=== PATIENT | female | born 1985 | race Caucasian/White ===

== ENCOUNTER → 2018-12-24 | Outpatient (CLI) | payer OTHER, SELFPAY ==
[2018-12-24 10:36] VITALS: BMI 33.1
[2018-12-24 12:37] LABS: Absolute Lymphocyte Count 1.86 X10^3/uL (0.83-4.51); Absolute Neutrophil Count 8.4 X10^3/uL (2.0-7.7); Basophil# 0.05 X10^3/uL; Basophil% 0.5 % (0-1); Eosinophil# 0.04 X10^3/uL; Eosinophils% 0.4 % (0-5); Hematocrit 38.9 % (37-47); Hemoglobin 13.1 g/dL (12.0-15.0); Lymphocyte # 1.86 X10^3/ul (4.0); Lymphocyte % 17.3 % (19-41); Mean Corp Hgb Conc 33.7 g/dL (32-36); Mean Corpuscular Hgb 30.5 pg (27.0-32.0); Mean Corpuscular Volume 90.7 fL (81-99); Mean Platelet Vol. 9.6 fl (6.2-12.0); Monocyte# 0.41 X10^3/uL; Monocyte% 3.8 % (0-10); NRBC Flagged by Analyzer 0 % (0-5); Neutrophil # 8.38 X10^3/uL (2.7-7.7); Neutrophil % 77.7 % (47-70); Platelet Count 285 K/mm3 (150-450); RBC Distribution Width CV 12.6 % (11.6-14.6); RBC Distribution Width SD 41.4 fl (35.1-43.9); Red Blood Count 4.29 M/mm3 (4.2-5.4); White Blood Count 10.8 K/mm3 (4.4-11.0)
[2018-12-24 12:42] LABS: Glucose Challenge Gest 1H 50g 104 mg/dL (70-140)
[2018-12-24 13:35] LABS: HIV - WCH Non-Reactive (Nonreactive); Rubella IgG 91.7 IU/mL
[2018-12-24 19:00] LABS: Chlamydia Trachomatis by PCR Negative (Negative); Neisserai gonorrhoeae by PCR Negative (Negative); Probe Check PASS; Sample Adequacy Control PASS; Specimen Processing Control PASS
[2018-12-26 04:56] LABS: Rapid Plasmin Reagin (RPR) NONREACTIVE (NONREACTIVE)
[2018-12-29 11:28] LABS: HPV APTIMA, High Risk Negative (Negative)
== END | disposition home or self-care (01) ==
PROVIDERS: Family Provider Family Medicine; PCP Family Medicine; Referring Provider Nurse Practitioner Women's Health; Visit Provider Nurse Practitioner Women's Health
DX: Z34.90 Encounter for supervision of normal pregnancy, unspecified, unspecified trimester (principal); O99.211 Obesity complicating pregnancy, first trimester; E66.9 Obesity, unspecified; Z12.4 Encounter for screening for malignant neoplasm of cervix; Z34.81 Encounter for supervision of other normal pregnancy, first trimester
CPT/HCPCS: 36415; 82950; 85025; 86592; 86703; 86762; 86850; 86900; 87077; 87086; 87088; 87186; 87491; 87591; 87624; 88175; G0145

== ENCOUNTER → 2019-03-24 14:11 | Outpatient (CLI) | payer OTHER, SELFPAY ==
[2019-03-24 12:16] VITALS: BMI 33.1
== END ==
PROVIDERS: Family Provider Family Medicine; PCP Family Medicine; Referring Provider Physician Assistant Surgical; Visit Provider Physician Assistant Surgical
DX: J02.9 Acute pharyngitis, unspecified (principal)
CPT/HCPCS: 87070

== ENCOUNTER → 2019-04-21 14:30 | Outpatient (CLI) | payer OTHER, SELFPAY ==
[2019-04-16 16:07] VITALS: BMI 33.1
[2019-04-21 14:56] LABS: Absolute Neutrophil Count 8.1 X10^3/uL (2.0-7.7); Basophil# 0.04 X10^3/uL; Basophil% 0.4 % (0-1); Eosinophil# 0.08 X10^3/uL; Eosinophils% 0.8 % (0-5); Hematocrit 34.3 % (37-47); Hemoglobin 11.3 g/dL (12.0-15.0); Lymphocyte % 17.1 % (19-41); Mean Corp Hgb Conc 32.9 g/dL (32-36); Mean Corpuscular Hgb 30.9 pg (27.0-32.0); Mean Corpuscular Volume 93.7 fL (81-99); Mean Platelet Vol. 9.3 fl (6.2-12.0); Monocyte% 4.7 % (0-10); NRBC Flagged by Analyzer 0 % (0-5); Neutrophil # 8.08 X10^3/uL (2.7-7.7); Neutrophil % 76.5 % (47-70); Platelet Count 257 K/mm3 (150-450); RBC Distribution Width CV 12.3 % (11.6-14.6); Red Blood Count 3.66 M/mm3 (4.2-5.4); White Blood Count 10.6 K/mm3 (4.4-11.0)
[2019-04-21 15:06] LABS: Glucose Challenge Gest 1H 50g 104 mg/dL (70-140)
== END ==
PROVIDERS: Family Provider Family Medicine; PCP Family Medicine; Referring Provider Obstetrics & Gynecology; Visit Provider Obstetrics & Gynecology
DX: Z34.80 Encounter for supervision of other normal pregnancy, unspecified trimester (principal)
CPT/HCPCS: 36415; 82950; 85025

== ENCOUNTER → 2019-06-15 15:03 | Outpatient (CLI) | payer OTHER, SELFPAY ==
[2019-06-15 14:14] VITALS: BMI 33.1
[2019-06-15 16:10] LABS: Hemoglobin A1c 5.2 % (4.2-6.3)
[2019-06-16 09:20] LABS: Hepatitis B Surface Antigen Non-Reactive (Nonreactive)
== END ==
PROVIDERS: Referring Provider Obstetrics & Gynecology; Visit Provider Obstetrics & Gynecology
DX: Z34.80 Encounter for supervision of other normal pregnancy, unspecified trimester (principal); R81 Glycosuria
CPT/HCPCS: 36415; 83036; 87086; 87088; 87340

== ENCOUNTER 2019-07-02 10:05 | Inpatient (IN) | payer OTHER, SELFPAY ==
[2019-06-25 16:21] VITALS: BMI 33.1
[2019-07-02 10:43] VITALS: BMI 37.8
[2019-07-02] MEDS: Lactated Ringers 1,000 ML 200 ML IV (11:00)
[2019-07-02] MEDS: Lactated Ringers 500 ML 999 ML IV ×2 (11:03→12:00)
[2019-07-02 11:17] LABS: Absolute Lymphocyte Count 1.13 X10^3/uL (0.83-4.51); Absolute Neutrophil Count 16.3 X10^3/uL (2.0-7.7); Basophil# 0.04 X10^3/uL; Basophil% 0.2 % (0-1); Eosinophil# 0.08 X10^3/uL; Eosinophils% 0.4 % (0-5); Hematocrit 32.5 % (37-47); Hemoglobin 10.6 g/dL (12.0-15.0); Lymphocyte # 1.13 X10^3/ul (4.0); Lymphocyte % 6.1 % (19-41); Mean Corp Hgb Conc 32.6 g/dL (32-36); Mean Corpuscular Hgb 28.7 pg (27.0-32.0); Mean Corpuscular Volume 88.1 fL (81-99); Mean Platelet Vol. 9.2 fl (6.2-12.0); Monocyte# 0.97 X10^3/uL; Monocyte% 5.2 % (0-10); NRBC Flagged by Analyzer 0 % (0-5); Neutrophil # 16.29 X10^3/uL (2.7-7.7); Neutrophil % 87.2 % (47-70); Platelet Count 249 K/mm3 (150-450); RBC Distribution Width CV 13.3 % (11.6-14.6); RBC Distribution Width SD 43.1 fl (35.1-43.9); Red Blood Count 3.69 M/mm3 (4.2-5.4); White Blood Count 18.7 K/mm3 (4.4-11.0)
--- NOTE | 2019-07-02 13:18 | HP.PCM_ITS ---
- Problem List (1) SROM (spontaneous rupture of membranes) Status: Acute (2) GBS (group B streptococcus) UTI complicating Status: Acute Qualifiers: Comment: s/p treatment. Treat in labor (3) Status: Acute Qualifiers: Comment: Declines carrier. afp, Felisha low risk, anatomy normal (4) Supervision of other normal Status: Acute Comment: PRR CATHERINE 07/20/19 girl Saleem Sharif - Nicholas History Date of Admission: 07/02/19 Final CATHERINE: 07/20/19 Final CATHERINE Source: LMP Gestational age: 37 Weeks and 3 Days History of this : This is a 33 year-old, at 37 weeks gestational age presents IAL with SROM clear fluid regular ctx no vb good fm no complications iwth . gbs positive. Medical History: Medical History (Last Reviewed 06/25/19 @ 16:20 by Elena Earl) History of depression Z86.59 Surgical History: Surgical History (Last Reviewed 06/25/19 @ 16:20 by Elena Earl) History of skin surgery Z98.890 lynsey removed as infant Allergies No Known Allergies Allergy (Verified 07/02/19 11:39) Home Medications: Home Medications multivitamin,kw-bczy-tkwvdphw 1 tab PO DAILY 03/16/19 Smoking Status: Never smoker Alcohol: None Number of Fetus(es): 1 NST - FHR Rate Baby A Baseline: 140 Variability:: Moderate Accelerations:: 15 x 15 Decelerations:: None NST Reactive:: Yes FHR Category:: Category I Uterine Activity:: q 3-4 History Past Pregnancies: Past Pregnancies preivous term uncomplicated Labs: Mom's Labs & Results 07/02/19 07/02/19 11:00 11:00 WBC 18.7 H RBC 3.69 L Hgb 10.6 L Hct 32.5 L MCV 88.1 MCH 28.7 MCHC 32.6 RDW Std Deviation 43.1 RDW Coeff of Ritesh 13.3 Plt Count 249 MPV 9.2 Immature Gran % (Auto) 0.900 Neut % (Auto) 87.2 H Lymph % (Auto) 6.1 L Leake % (Auto) 5.2 Eos % (Auto) 0.4 Baso % (Auto) 0.2 Absolute Neuts (auto) 16.3 H Absolute Lymphs (auto) 1.13 Nucleated RBC % 0 Blood Type Pending Antibody Screen Pending Course Did the patient receive Yes care? Labs Blood Type: O RH: POSITIVE HIV/AIDS Non-Reactive Current Obstetrical History Gestational Diabetes No Incompetent Cervix No Infertility No IUGR No Macrosomia No Hypertension/Pre-eclampsia No Placenta Previa/Abruption No PTL/PROM No Uterine anomaly No Oligohydramnios No Polyhydramnios No Multiple gestation No Past Medical History Asthma No Diabetes No Hypertension No Heart disease No Mitral valve prolapse No Neurologic/Seizure disorder/ No Migraines Kidney disease No Liver disease No Varicosities No Clotting disorders/Hx of DVT No Thyroid Dysfunction No Other medical diseases No Psychiatric disorders No Major trauma No Abnormal PAP smear No Sleep apnea No Mammogram in the last 2 years No Social History Marital Status: Alleged father Nicholas Akins Hx Smoking No Smoking Status Never smoker Expected Infant Delivery Method: Spontaneous Vaginal Review of Systems Constitutional: Denies: Fever, Malaise Eyes: Denies: Blurred vision, Vision Change HEENT: Denies: Head Aches, Visual Changes Cardiovascular: Denies: Chest Pain, Palpitations Respiratory: Denies: Cough, Shortness of Breath, Wheezing Gastrointestinal: Denies: Abdominal Pain, Diarrhea, Nausea, Vomiting Genitourinary: Denies: Dysuria, Hematuria Musculoskeletal: Denies: Joint Pain, Muscle pain Skin: Denies: Lesions, Rash Neurological: Denies: Blurred vision, Focal weakness, Headaches Psychiatric: Denies: Anxiety, Depression Endocrine: Denies: Heat/ Cold Intolerance Hematologic/ Lymphatic: Denies: Easy Bruising, Easy Bleeding Physical Exam General: Alert, Cooperative, No apparent distress HEENT: Atraumatic, Normocephalic. Negative for: Thyromegaly, Lymphadenopathy Cardiovascular: Regular rate Lungs: Normal air movement Abdomen: Soft, Non Tender, Gravid Neurological: Deep Tendon Reflexes 2+/4 and Symmetrical, Neuro grossly intact. Negative for: Clonus RN CASE MANAGEMENT: Normal external genitalia. Negative for: Vulvar lesions Estimated gestational size: Appropriate for gestational size Presentation: Cephalic Cervix Dilation (cm): 3 Assessment/Plan All Active Problems (Last Reviewed 06/25/19 @ 16:20 by Elena Earl) SROM (spontaneous rupture of membranes) (Acute) GBS (group B streptococcus) UTI complicating (Acute) (Acute) Supervision of other normal (Acute) This is a 33 year-old, , at 37 weeks gestational age presents IAL SROM clear fluid Patient presents IAL, plan expectant management for , pitocin if needed. Pain management: Plans epidural. GBS positive plan IV PCN. Management of any complications: None I have reviewed the [facility] and made any clinically relevant updates.
[2019-07-02] MEDS: Oxytocin 30 units/NS 500 ml 30 UNITS/500 ML IV.SOLN 334 UNITS IV (13:39)
--- NOTE | 2019-07-02 13:43 | OP.PCM_ITS ---
Problem List (1) SROM (spontaneous rupture of membranes) Status: Acute (2) GBS (group B streptococcus) UTI complicating Status: Acute Qualifiers: Comment: s/p treatment. Treat in labor (3) Status: Acute Qualifiers: Comment: Declines carrier. afp, Felisha low risk, anatomy normal (4) Supervision of other normal Status: Acute Comment: PRR CATHERINE 07/20/19 girl Saleem Sharif - Nicholas Vaginal Delivery Maternal Presentation: Active Labor ial 37 weeks Amniotic Membrane Rupture Type: Spontaneous at home Amniotic Fluid Description: Clear Final CATHERINE: 07/20/19 Gestational age: 37 Weeks and 3 Days Date of Procedure: 07/02/19 Pre-Operative Diagnosis: ial srom Post-Operative Diagnosis: same plus small peripheral abruption Surgery/ Procedure Performed: Spontaneous Vaginal Delivery Type of Anesthesia: Epidural Description of Procedure: Patient began pushing and delivered the head in the ROGER presentation. The head was delivered atraumatically . The anterior and posterior shoulders delivered without complication followed by the rest of the infant and the was placed on the maternal abdomen. Delayed cord clamping was employed for approximately 60 seconds. Cord was clamped and cut and gentle traction was applied to the cord and the placenta delivered spontaneously immediately following it was noted to be intact with three-vessel cord. The perineum and vagina were inspected and noted to have a small first-degree perineal laceration repaired in the usual fashion with 3-0 Vicryl Rapide. EBL was 800 cc. Patient and tolerated delivery well. Presentation: ROGER Placental Delivery Description: Spontaneous Placenta Disposition: [facility] Percentage of Placenta Abruption: 5 Cord Vessel Description: 3 Vessels Nuchal Cord Compression: With compression Cord Entanglement: None Estimated Blood Loss: 300 A gender: Female Episiotomy Description: None Laceration: Perineal Extension/lac, 1st degree Medications given after delivery: IV Pitocin Complications: None Multi Select Codes - Urinary/Genital Urinary/Genital CPT Codes: 01746 Vaginal Delivery [facility]
[2019-07-02] MEDS: Methylergonovine 0.2 MG/ML Ampul IM (13:45)
[2019-07-02] MEDS: Naproxen 250 MG Tablet 500 MG PO ×2 (15:13→22:54)
[2019-07-02 16:00] VITALS: BP 110/55; PULSE 83; RESP 16; TEMP 37.1
[2019-07-02] MEDS: Acetaminophen 500 MG Tablet 1000 MG PO (17:01)
[2019-07-02 18:00] VITALS: BP 110/56; PULSE 79; RESP 16; TEMP 37
[2019-07-02 19:35] VITALS: BP 119/49; PULSE 85; RESP 14; TEMP 36.6; O2SAT 97
[2019-07-02 22:56] VITALS: BP 91/46; PULSE 73; RESP 16; TEMP 36.6
[2019-07-03 03:29] VITALS: BP 95/53; PULSE 50; RESP 16; TEMP 36.7
[2019-07-03 08:09] VITALS: BP 98/43; PULSE 60; RESP 12; TEMP 36.5
[2019-07-03 12:32] VITALS: BP 113/55; PULSE 76; RESP 16; TEMP 36.6
[2019-07-03 16:17] VITALS: BP 125/62; PULSE 83; RESP 16; TEMP 36.7
--- NOTE | 2019-07-03 17:19 | PCM.PN.OB ---
Patient Problems: Active and Suspected Problems (Last Reviewed 06/25/19 @ 16:20 by Elena Earl) SROM (spontaneous rupture of membranes) (Acute) Subjective: doing well no complaints pain controlled no CP SOB N V ambulating well tolerating po lochia moderate, going well - Physical Exam Vitals/I&O's: Vital Signs Temp Pulse Resp BP Pulse Ox 98.1 F 83 16 125/62 H 97 07/03/19 16:17 07/03/19 16:17 07/03/19 16:17 07/03/19 16:17 07/02/19 19:35 Oxygen Delivery Method Room Air Weight: 213 lb 2.992 oz Body Mass Index (BMI) 37.8 Intake and Output for Last 24 Hours 07/01/19 07/02/19 07/03/19 23:59 23:59 23:59 Intake Total 2137.33 / 2137.33 Output Total 1500 / 1500 Balance 637.33 / 637.33 General: Alert, Oriented x3 Current Medications Acetaminophen (Tylenol) 1,000 mg PO Q8H PRN PRN PRN Reason: Pain Score 1-310 Last Admin: 07/02/19 17:01 Dose: 1,000 mg Documented by: Bisacodyl (Dulcolax) 10 mg RECTAL UD PRN PRN Reason: If no BM Dibucaine (Dibucaine) 1 applic TOPICAL TID PRN PRN; Protocol PRN Reason: Discomfort Hydrocortisone (Hytone) 1 applic TOPICAL TID PRN PRN; Protocol PRN Reason: Discomfort Methylergonovine Maleate (Methergine) 0.2 mg IM X1 PRN PRN Reason: Excess bleeding/uterine atony Last Admin: 07/02/19 13:45 Dose: 0.2 mg Documented by: Naproxen (Naprosyn) 500 mg PO Q8H PRN PRN PRN Reason: Pain Score 1-3/10 Last Admin: 07/02/19 22:54 Dose: 500 mg Documented by: Ondansetron HCl (Zofran) 4 mg IV Q4H PRN PRN PRN Reason: Nausea Oxycodone HCl (Oxyir) 5 - 10 mg PO Q4H PRN PRN PRN Reason: Pain Score 4-10/10 Senna/Docusate Sodium (Senokot-S, Kelli-Colace) 1 - 2 tablet PO DAILY PRN PRN PRN Reason: Constipation Simethicone (Mylicon) 80 mg PO PCHS PRN PRN Reason: Indigestion/Stomach pain Sodium Chloride () 5 - 15 ml IV UD PRN PRN Reason: SALINE FLUSH Medical Necessity - Tobacco Use Smoking Status: Never smoker Assessment/Plan All Active Problems (Last Reviewed 06/25/19 @ 16:20 by Elena Earl) SROM (spontaneous rupture of membranes) (Acute) GBS (group B streptococcus) UTI complicating (Acute) (Acute) Supervision of other normal (Acute) s/p PPD # 1 1. routine post delivery care 2. breast feeding- support given 3. rh positive 4. rubella immune
[2019-07-03 20:00] VITALS: BP 116/73; PULSE 86; RESP 16; TEMP 36.4
[2019-07-04 02:00] VITALS: BP 100/48; PULSE 61; RESP 16; TEMP 36.7
--- NOTE | 2019-07-04 04:09 | PCM.PN.OB ---
Patient Problems: Active and Suspected Problems (Last Reviewed 06/25/19 @ 16:20 by Elena Earl) SROM (spontaneous rupture of membranes) (Acute) Subjective: doing well no complaints pain controlled no CP SOB N V ambulating well tolerating po lochia moderate, going well - Physical Exam Vitals/I&O's: Vital Signs Temp Pulse Resp BP Pulse Ox 98.1 F 61 16 100/48 L 97 07/04/19 02:00 07/04/19 02:00 07/04/19 02:00 07/04/19 02:00 07/02/19 19:35 Oxygen Delivery Method Room Air Weight: 213 lb 2.992 oz Body Mass Index (BMI) 37.8 Intake and Output for Last 24 Hours 07/02/19 07/03/19 07/04/19 23:59 23:59 23:59 Intake Total 2137.33 / 2137.33 Output Total 1500 / 1500 Balance 637.33 / 637.33 General: Alert, Oriented x3 Current Medications Acetaminophen (Tylenol) 1,000 mg PO Q8H PRN PRN PRN Reason: Pain Score 1-310 Last Admin: 07/02/19 17:01 Dose: 1,000 mg Documented by: Bisacodyl (Dulcolax) 10 mg RECTAL UD PRN PRN Reason: If no BM Dibucaine (Dibucaine) 1 applic TOPICAL TID PRN PRN; Protocol PRN Reason: Discomfort Hydrocortisone (Hytone) 1 applic TOPICAL TID PRN PRN; Protocol PRN Reason: Discomfort Methylergonovine Maleate (Methergine) 0.2 mg IM X1 PRN PRN Reason: Excess bleeding/uterine atony Last Admin: 07/02/19 13:45 Dose: 0.2 mg Documented by: Naproxen (Naprosyn) 500 mg PO Q8H PRN PRN PRN Reason: Pain Score 1-3/10 Last Admin: 07/02/19 22:54 Dose: 500 mg Documented by: Ondansetron HCl (Zofran) 4 mg IV Q4H PRN PRN PRN Reason: Nausea Oxycodone HCl (Oxyir) 5 - 10 mg PO Q4H PRN PRN PRN Reason: Pain Score 4-10/10 Senna/Docusate Sodium (Senokot-S, Kelli-Colace) 1 - 2 tablet PO DAILY PRN PRN PRN Reason: Constipation Simethicone (Mylicon) 80 mg PO PCHS PRN PRN Reason: Indigestion/Stomach pain Sodium Chloride () 5 - 15 ml IV UD PRN PRN Reason: SALINE FLUSH Medical Necessity - Tobacco Use Smoking Status: Never smoker Assessment/Plan All Active Problems (Last Reviewed 06/25/19 @ 16:20 by Elena Earl) SROM (spontaneous rupture of membranes) (Acute) GBS (group B streptococcus) UTI complicating (Acute) (Acute) Supervision of other normal (Acute) s/p PPD # 2 1. routine post delivery care 2. breast feeding- support given 3. rh positive 4. rubella immune
--- NOTE | 2019-07-04 04:10 | DCINST_ITS ---
Discharge Diet: No Restrictions Discharge Activity: Return to Normal Activity, May not drive while taking narcotic pain medications., May Shower May resume sexual activity in: 4-6 weeks Call your doctor if your incision/area has: Continuous Slow Oozing, Sudden Increased Bleeding, Increased Pain/ Swelling, Increased Redness, Foul Smelling Discharge Additional Instructions: If you experience any of the following, contact your healthcare provider. * Bleeding that soaks a pad every hour for 2 hours * Fever 100.4 or higher * Unrelieved incision or abdominal pain * Swelling, redness, discharge or bleeding from your incision or episiotomy site * Your incision begins to separate * Problems urinating (including inability to urinate or burning while urinating). * Visual changes * Severe headache * Flu-like symptoms * Pain or redness in one of both of your breasts * Pain, warmth, tenderness or swelling in your legs, especially the calf area * Frequent nausea and vomiting * Symptoms of depression or anxiety If you experience any of the following, call 911 or go to the nearest Emergency Room. * Chest pain * Problems breathing * Seizure activity * Partial or complete paralysis of a body part, slurred speech, weakness or drooping of the face, or a sudden inability to walk or hold your balance Allergies/Adverse Reactions: Allergies No Known Allergies Allergy (Verified 07/02/19 11:39) Medications to take at Discharge multivitamin,cy-ydct-cejgygyi 1 tab PO DAILY 03/16/19 Naproxen [Naprosyn] 250 - 500 mg PO Q8H PRN PRN #30 tab 07/04/19 The following prescriptions were given: Naproxen [Naprosyn] 250 - 500 mg PO Q8H PRN PRN #30 tab PRN Reason: MILD PAIN Transmission Status: Pending to [facility] Please Follow Up With: Lupe Kat MD - [phone] When: Call to make an appointment with your doctor in 6 weeks. If you had elevated Blood pressure or 4th degree laceration you will need to be seen in 2 weeks. Primary Care Physician: Care Physician,No Primary [Primary Care Provider] - Test Results: Test results from this visit will be discussed in further detail at your follow- up appointment, if applicable.
--- NOTE | 2019-07-04 04:10 | PCM.DCVAG ---
Discharge Diet: No Restrictions Discharge Activity: Return to Normal Activity, May not drive while taking narcotic pain medications., May Shower May resume sexual activity in: 4-6 weeks Call your doctor if your incision/area has: Continuous Slow Oozing, Sudden Increased Bleeding, Increased Pain/ Swelling, Increased Redness, Foul Smelling Discharge Additional Instructions: If you experience any of the following, contact your healthcare provider. Bleeding that soaks a pad every hour for 2 hours Fever 100.4 or higher Unrelieved incision or abdominal pain Swelling, redness, discharge or bleeding from your incision or episiotomy site Your incision begins to separate Problems urinating (including inability to urinate or burning while urinating). Visual changes Severe headache Flu-like symptoms Pain or redness in one of both of your breasts Pain, warmth, tenderness or swelling in your legs, especially the calf area Frequent nausea and vomiting Symptoms of depression or anxiety If you experience any of the following, call 911 or go to the nearest Emergency Room. Chest pain Problems breathing Seizure activity Partial or complete paralysis of a body part, slurred speech, weakness or drooping of the face, or a sudden inability to walk or hold your balance Allergies/Adverse Reactions: Allergies No Known Allergies Allergy (Verified 07/02/19 11:39) Medications to take at Discharge multivitamin,dy-mqki-rivgjjpi 1 tab PO DAILY 03/16/19 Naproxen [Naprosyn] 250 - 500 mg PO Q8H PRN PRN #30 tab 07/04/19 The following prescriptions were given: Naproxen [Naprosyn] 250 - 500 mg PO Q8H PRN PRN #30 tab PRN Reason: MILD PAIN Transmission Status: Pending to [facility] Please Follow Up With: Lupe Kat MD - [phone] When: Call to make an appointment with your doctor in 6 weeks. If you had elevated Blood pressure or 4th degree laceration you will need to be seen in 2 weeks. Primary Care Physician: Care Physician,No Primary [Primary Care Provider] - Test Results: Test results from this visit will be discussed in further detail at your follow-up appointment, if applicable.
[2019-07-04 09:00] VITALS: BP 102/51; PULSE 70; RESP 18; TEMP 36.4; O2SAT 100
== END 2019-07-04 12:20 | disposition home or self-care (01) | DRG 807 ==
PROVIDERS: Admitting Provider Obstetrics & Gynecology; Referring Provider Obstetrics & Gynecology; Visit Provider Obstetrics & Gynecology
DX: O99.824 Streptococcus B carrier state complicating childbirth (principal); Z37.0 Single live birth; Z3A.37 37 weeks gestation of pregnancy; O45.93 Premature separation of placenta, unspecified, third trimester; O70.0 First degree perineal laceration during delivery
CPT/HCPCS: 59025; 59050; 85025; 86850; 86900; 86901; 99218; J7120; G0378

== ENCOUNTER → 2022-11-07 | Outpatient (CLI) | payer OTHER, SELFPAY ==
--- NOTE | 2022-11-07 10:37 | RAD_ITS ---
EXAM: XR RIGHT ANKLE COMPLETE, 3 OR MORE VIEWS CLINICAL INDICATION: INJURY TECHNIQUE: Frontal, lateral and oblique views of the right ankle. COMPARISON: No relevant prior studies available. FINDINGS: BONES/JOINTS: Unremarkable. No acute fracture. No subluxation. Normal alignment. Preservation of the joint space. No sclerotic or destructive changes observed. SOFT TISSUES: Lateral soft tissue swelling. No radiopaque foreign body. RAD/Ankle min 3 Views IMPRESSION: Lateral soft tissue swelling. No fracture identified. Electronically Signed: Kolton Arreola MD at 3:33 EDT ,
== END | disposition home or self-care (01) ==
PROVIDERS: PCP Nurse Practitioner Family; Referring Provider Nurse Practitioner Family; Visit Provider Nurse Practitioner Family
DX: S99.911A Unspecified injury of right ankle, initial encounter (principal)
CPT/HCPCS: 73610

== ENCOUNTER → 2023-08-05 | Outpatient (CLI) | payer OTHER, SELFPAY ==
--- OUTSIDE RECORDS SUMMARY | 2023-08-05 23:10 | XMS RPT_ITS | CCD ---
Author Name Unknown Address [id number] [place] [address] Organization [facility] Care Team Providers Care Pharmacy Informatics Specialist Name Role Phone JULISA AMAYA (DATA ENTRY SUPERVISOR) Unavailable Unavailable SENA BORGES Unavailable Unavailable MONIQUEJULISA SHELL (DATA ENTRY SUPERVISOR) Unavailable Unavailable Results Test Name Value Interpretation Reference Range Facil ity Encounters Encounter Date Encounter Type Care Provider Facility Start: 05-06-2018 End: 05-07-2018 Patient encounter procedure SENA BORGES [facility] Start: 05-20-2017 End: 05-21-2017 Patient encounter procedure JULISA (DATA ENTRY SUPERVISOR) MONIQUE [facility] Summary Purpose Family History No Family History Records Found Advance Directives No Advanced Directives Records Found Additional Source Comments INFORMATION SOURCE (unrecogn ized section and content) FOR RECORDS PERTAINING TO PATIENTS WHO ARE OR HAVE BEEN ENROLLED IN A CHEMICAL DEPENDENCY/SUBSTANCEABUSE PROGRAM, SOME INFORMATION MAY BE OMITTED. This clinical summary was aggregated from multiple sources. Caution should be exercised in using it in the provision of clinical care. This summary normalizes information from multiple sources, and as a consequence, information in this document may materially change the coding, format and clinical context of patient data. In addition, data may be omitted in some cases. CLINICAL DECISIONS SHOULD BE BASED ON THE PRIMARY CLINICAL RECORDS. [facility]. provides no warranty or guarantee of the accuracy or completeness of information in this document.
[2023-08-08 17:07] LABS: HPV APTIMA, High Risk Negative (Negative)
== END | disposition home or self-care (01) ==
LOC: LABSPEC 14:41
PROVIDERS: PCP Nurse Practitioner Family; Visit Provider Nurse Practitioner Women's Health
DX: Z12.4 Encounter for screening for malignant neoplasm of cervix (principal)
CPT/HCPCS: 87624; 88175; G0145